=== PATIENT | female | born 1955 | race Caucasian/White ===

== ENCOUNTER 2017-09-27 10:27 | Observation (INO) | payer BC ==
[2017-09-27] VITALS (8 sets, daily range): BP systolic 121–160; BP diastolic 60–81; PULSE 71–85; RESP 16–28; TEMP 97.8–98.9; O2SAT 96–99
[~2017-09-27] VITALS: Ht 157.5 cm; Wt 60.0 kg
[2017-09-27] MEDS ORDERED: ZOCO10TA PO (10:50)
[2017-09-27] MEDS ORDERED: SODIUM CHLOR 0.9% 1000 ML INJ 1,000 ML IV SCH (11:05)
[2017-09-27] MEDS ORDERED: ONDANSETRON HCL 4 MG/2 ML VIAL IVP ONE (11:15)
[2017-09-27] MEDS ORDERED: SODIUM CHLORIDE 0.9% FLUSH 10 ML FLUSH IV FLUSH PRN ×2 (11:15→15:30)
[2017-09-27] MEDS ORDERED: HYDROmorphone HCL PF 1 MG/ML VIAL IVS ONE (11:15)
[2017-09-27] MEDS ORDERED: KETOROLAC TROMETHAMINE 30 MG/ML (IVP) VIAL IVP ONE (11:15)
[2017-09-27 11:37] LABS: AUTOMATED NEUTROPHIL # 4.6 TH/MM3 (1.8-7.7); BASOPHIL % 0.5 % (0.0-2.0); EOSINOPHIL # 0.2 TH/MM3 (0-0.4); EOSINOPHIL % 2.2 % (0.0-4.0); HEMATOCRIT 46.2 % (35.0-46.0); HEMOGLOBIN 15.3 GM/DL (11.6-15.3); LYMPH % 30.1 % (9.0-44.0); LYMPHOCYTE # 2.3 TH/MM3 (1.0-4.8); MEAN CORPUSCULAR HEMOGLOBIN 28.9 PG (27.0-34.0); MEAN CORPUSCULAR HGB CONC 33.2 % (32.0-36.0); MONO % 8.3 % (0.0-8.0); MONOCYTE # 0.6 TH/MM3 (0-0.9); NEUT % 58.9 % (16.0-70.0); PLATELET COUNT 226 TH/MM3 (150-450); RED BLOOD COUNT 5.31 MIL/MM3 (4.00-5.30); RED CELL DISTRIBUTION WIDTH 13.8 % (11.6-17.2); WHITE BLOOD COUNT 7.7 TH/MM3 (4.0-11.0)
[2017-09-27 12:00] LABS: ALKALINE PHOSPHATASE 58 U/L (45-117); TOTAL BILIRUBIN ADULT 0.6 MG/DL (0.2-1.0); TOTAL PROTEIN 7.5 GM/DL (6.4-8.2)
--- NOTE | 2017-09-27 12:00 | RADRPT ---
EXAM DATE/TIME: 09/27/2017 11:41 [place] COMPARISON: No previous studies available for comparison. INDICATIONS : Calculi, Lower abdomen pain and nausea. ORAL CONTRAST: No oral contrast ingested. RADIATION DOSE: 4.20 CTDIvol (mGy) MEDICAL HISTORY : Carcinoma, breast. SURGICAL HISTORY : Cholecystectomy. Hysterectomy. ENCOUNTER: Initial ACUITY: 1 day PAIN SCALE: 2/10 LOCATION: Left lower quadrant TECHNIQUE: Volumetric scanning of the abdomen and pelvis was performed. Using automated exposure control and ad justment of the mA and/or kV according to patient size, radiation dose was kept as low as reasonably achievable to obtain optimal diagnostic quality images. DICOM format image data is available electro nically for review and comparison. FINDINGS: LOWER LUNGS: The visualized lower lungs are clear. LIVER: Homogeneous density without lesion. There is no dilation of the biliary tree. Clips in place prior c holecystectomy. SPLEEN: Normal size without lesion. PANCREAS: Within normal limits. KIDNEYS: Right kidney demonstrates at least 4 punctate calyceal nonobstructing stones 2 in the lower pole one midpole and one towards the upper pole. Left kidney demonstrates a by weight 2 cm cyst anteri or lateral midpole. There is mild hydronephrosis and ureter to the UP junction where there is a 3 mm obstructing stone. Additionally there is a punctate 1-2 mm calculus in the left ureter at the level o f L5.. ADRENAL GLANDS: Within normal limits. VASCULAR: There is no aortic aneurysm. BOWEL/MESENTERY: The stomach, small bowel, and colon demonstrate no acute abnormality. There is no free intraperitone al air or fluid. ABDOMINAL WALL: Within normal limits. Clips in place bilateral inguinal regions as well as throughout the anterior ab dominal wall consistent with remote surgery. RETROPERITONEUM: There is no lymphadenopathy. BLADDER: No wall thickening or mass. REPRODUCTIVE: Within normal limits. Surgical absence of uterus. INGUINAL: There is no lymphadenopathy or hernia. MUSCULOSKELETAL: Within normal limits for patient age. CONCLUSION: Multiple punctate at least 4 right kidney calyceal nonobstructing stones. 5.3 cm left kidney cyst. Left hydronephrosis and ureter to the UV junction wh ere there is a 3 mm obstructing calculus. Additionally appreciated is a punctate calculus in the left ureter one or 2 mm in size and level of L5. Joby Rey MD on September 27, 2017 at 11:48 Board Certified Radiologist. This report was verified electronically.
[2017-09-27 12:10] LABS: ALBUMIN 3.9 GM/DL (3.4-5.0); ALT (GPT) 56 U/L (10-53); AST (GOT) 45 U/L (15-37); BICARBONATE 25.6 MEQ/L (21.0-32.0); BLOOD UREA NITROGEN 17 MG/DL (7-18); CALCIUM 8.9 MG/DL (8.5-10.1); CHLORIDE 105 MEQ/L (98-107); CREATININE 1.03 MG/DL (0.50-1.00); GLOMERULAR FILTRATION RATE 54 ML/MIN (>89); GLUCOSE,RANDOM 131 MG/DL (74-106); LIPASE 245 U/L (73-393); SODIUM (NA) 140 MEQ/L (136-145)
[2017-09-27] MEDS ORDERED: SODIUM CHLOR 0.9% 1000 ML INJ 1,000 ML IV ONE (12:15)
[2017-09-27] MEDS ORDERED: ONDANSETRON HCL 4 MG/2 ML VIAL IV ONE (12:15)
[2017-09-27] MEDS ORDERED: NAPR-855 PO (13:04)
[2017-09-27] MEDS ORDERED: ZOFR4TAB3 SL (13:04)
[2017-09-27] MEDS ORDERED: HYDR-3516 PO (13:04)
--- NOTE | 2017-09-27 13:04 | PD ---
HPI Chief Complaint: Abdominal Pain Time Seen by Provider: 11:05 Travel History International Travel<30 days: No Contact w/Intl Traveler<30days: No Traveled to known affect area: No History of Present Illness HPI This is a 62-year-old female who presents to the emergency department with onset this morning of left sided abdominal pain, sharp and stabbing mostly in the left lower abdomen radiating to the left flank, severe. She also has had some vomiting. She has never had pain like this before. Her father and her son both have had kidney stones. She says she thinks she has diverticulitis. She has had some chills. She does feel some dysuria but denies any hematuria. PFSH Past Medical History Cancer: Yes High Cholesterol: Yes Diminished Hearing: No Medical other: Yes Tetanus Vaccination: < 5 Years Influenza Vaccination: Yes Menopausal: Yes : 1 Para: 1 Past Surgical History Cholecystectomy: Yes Hysterectomy: Yes Other Surgery: Yes (breast ca sx) Social History Alcohol Use: No Tobacco Use: No Substance Use: No Allergies-Medications (Allergen,Severity, Reaction): Coded Allergies: codeine (Verified Adverse Reaction, Unknown, nauseas/ vomiting, 09/27/17) Reported Meds & Prescriptions Reported Meds & Active Scripts Active Naproxen 375 Mg Tab 375 Mg PO BID PRN Zofran Odt (Ondansetron Odt) 4 Mg Tab 4 Mg SL Q6HR PRN Hydrocodone-Acetamin 5-325 mg (Hydrocodone/Acetaminophen) 5 Mg-325 Mg Tablet 1 Tab PO Q6HR PRN Reported Zocor (Simvastatin) 10 Mg Tab 10 Mg PO DAILY Review of Systems Except as stated in HPI: all other systems reviewed are Neg Physical Exam Narrative GENERAL: Uncomfortable appearing SKIN: Focused skin assessment warm and dry. HEAD: Atraumatic. Normocephalic. EYES: Pupils equal and round. No injection or drainage. ENT: Moist mucous membranes NECK: Trachea midline. CARDIOVASCULAR: Regular rate and rhythm. No murmur appreciated. RESPIRATORY: Clear to auscultation. Breath sounds equal bilaterally. GASTROINTESTINAL: Abdomen soft, tender to palpation in the left lower quadrant with some guarding. : Left CVA tenderness. MUSCULOSKELETAL: No obvious deformities. NEUROLOGICAL: Awake and alert. No obvious cranial nerve deficits. Moving all extremities. PSYCHIATRIC: Appropriate mood and affect; insight and judgment normal. Data Data Last Documented VS Vital Signs Date Time Temp Pulse Resp B/P (MAP) Pulse Ox O2 Delivery O2 Flow Rate FiO2 09/27/17 14:38 97.9 74 16 121/64 (83) 98 Room Air Orders Orders Complete Blood Count With Diff (09/27/17 11:05) Comprehensive Metabolic Panel (09/27/17 11:05) Lipase (09/27/17 11:05) Lactic Acid (09/27/17 11:05) Urinalysis - C+S If Indicated (09/27/17 11:05) Ct Abd/Pel W/O Iv Contrast (09/27/17 11:05) Iv Access Insert/Monitor (09/27/17 11:05) Ecg Monitoring (09/27/17 11:05) Oximetry (09/27/17 11:05) Ondansetron Inj (Zofran Inj) (09/27/17 11:15) Sodium Chlor 0.9% 1000 Ml Inj (Ns 1000 M (09/27/17 11:05) Sodium Chloride 0.9% Flush (Ns Flush) (09/27/17 11:15) Ketorolac Inj (Toradol Inj) (09/27/17 11:15) Hydromorphone Pf Inj (Dilaudid Pf Inj) (09/27/17 11:15) Sodium Chlor 0.9% 1000 Ml Inj (Ns 1000 M (09/27/17 12:15) Ondansetron Inj (Zofran Inj) (09/27/17 12:15) Promethazine Inj (Phenergan Inj) (09/27/17 13:15) Lactic Acid (09/27/17 14:29) Admit Order (Ed Use Only) (09/27/17 14:45) Labs Laboratory Tests Test 09/27/17 11:10 09/27/17 13:00 09/27/17 14:30 White Blood Count 7.7 TH/MM3 Red Blood Count 5.31 MIL/MM3 Hemoglobin 15.3 GM/DL Hematocrit 46.2 % Mean Corpuscular Volume 87.0 FL Mean Corpuscular Hemoglobin 28.9 PG Mean Corpuscular Hemoglobin Concent 33.2 % Red Cell Distribution Width 13.8 % Platelet Count 226 TH/MM3 Mean Platelet Volume 9.0 FL Neutrophils (%) (Auto) 58.9 % Lymphocytes (%) (Auto) 30.1 % Monocytes (%) (Auto) 8.3 % Eosinophils (%) (Auto) 2.2 % Basophils (%) (Auto) 0.5 % Neutrophils # (Auto) 4.6 TH/MM3 Lymphocytes # (Auto) 2.3 TH/MM3 Monocytes # (Auto) 0.6 TH/MM3 Eosinophils # (Auto) 0.2 TH/MM3 Basophils # (Auto) 0.0 TH/MM3 CBC Comment DIFF FINAL Differential Comment Blood Urea Nitrogen 17 MG/DL Creatinine 1.03 MG/DL Random Glucose 131 MG/DL Total Protein 7.5 GM/DL Albumin 3.9 GM/DL Calcium Level 8.9 MG/DL Alkaline Phosphatase 58 U/L Aspartate Amino Transf (AST/SGOT) 45 U/L Alanine Aminotransferase (ALT/SGPT) 56 U/L Total Bilirubin 0.6 MG/DL Sodium Level 140 MEQ/L Potassium Level 3.8 MEQ/L Chloride Level 105 MEQ/L Carbon Dioxide Level 25.6 MEQ/L Anion Gap 9 MEQ/L Estimat Glomerular Filtration Rate 54 ML/MIN Lactic Acid Level 4.7 mmol/L 2.5 mmol/L Lipase 245 U/L Urine Color LIGHT-YELLOW Urine Turbidity CLEAR Urine pH 7.5 Urine Specific [place] 1.006 Urine Protein NEG mg/dL Urine Glucose (UA) NEG mg/dL Urine Ketones NEG mg/dL Urine Occult Blood NEG Urine Nitrite NEG Urine Bilirubin NEG Urine Urobilinogen LESS THAN 2.0 MG/DL Urine Leukocyte Esterase NEG Urine RBC 1 /hpf Urine WBC 1 /hpf Urine Squamous Epithelial Cells <1 /hpf Microscopic Urinalysis Comment CULT NOT INDICATED MDM Medical Decision Making Medical Screen Exam Complete: Yes Emergency Medical Condition: Yes Interpretation(s) Afebrile, no tachycardia, tachypnea secondary to pain, hypertension also likely secondary to pain No leukocytosis Electrolytes are reassuring Lactic acid is 4.7 likely in the setting of dehydration as the patient has no other evidence of infection. Differential Diagnosis Nephrolithiasis, pyelonephritis, obstructive uropathy, pancreatitis, diverticulitis Narrative Course This is a 62-year-old female who presents to the emergency department with left- sided abdominal pain. Her symptoms are classic for kidney stone. She was placed on a monitor and an IV was established. She was given pain control and antiemetics as well as IV fluids. Labs are reassuring with no leukocytosis. CT demonstrates 2 stones on the left side one of which is 3 mm and at the UVJ and one which is higher which is 1-2 mm. I was going to discharge the patient but she continues to feel very nauseous. She required 8 mg of IV Zofran and Phenergan and she still deals on well and her pain is recurring. I think patient requires observation for symptomatic control. Lactic acid is 4.7. I think this is related to dehydration as the patient has no other signs of sepsis and has no source of infection. Diagnosis Primary Impression: Nephrolithiasis Patient Instructions: General Instructions Additional Instructions: If you develop severe pain, inability to eat or drink, or fever return to the emergency department. Use a strainer to try to catch your stone. Take Lortab as needed for pain, and continue taking zofran as needed for nausea. Follow up with urology as soon as possible. Med/Other Pt SpecificInfo: Prescription(s) given Scripts Naproxen (Naproxen) 375 Mg Tab 375 MG PO BID Y for PAIN SCALE 4 TO 10, #20 TAB 0 Refills Prov: Cydney Hernandez MD 09/27/17 Ondansetron Odt (Zofran Odt) 4 Mg Tab 4 MG SL Q6HR Y for Nausea/Vomiting, #15 TAB 0 Refills Prov: Cydney Hernandez MD 09/27/17 Hydrocodone/Acetaminophen (Hydrocodone-Acetamin 5-325 mg) 5 Mg-325 Mg Tablet 1 TAB PO Q6HR Y for PAIN SCALE 4 TO 10, #12 Prov: Cydney Hernandez MD 09/27/17 Disposition: 01 DISCHARGE HOME Condition: Stable Cydney Hernandez MD Sep 27, 2017 13:04
[2017-09-27] MEDS ORDERED: PROMETHAZINE INJ 25 MG/ML VIAL IM ONE (13:15)
[2017-09-27 14:02] LABS: BILIRUBIN, URINE NEG (NEG); BLOOD, URINE NEG (NEG); GLUCOSE,URINE NEG (NEG); KETONE, URINE NEG (NEG); NITRITE,URINE NEG (NEG); PH, URINE 7.5 (5.0-8.5); SQUAMOUS EPITHELIAL CELL URINE <1 /hpf (0-5); URINE COLOR LIGHT-YELLOW (YELLW/STRAW); URINE LEUKOCYTE ESTERASE NEG (NEG)
--- NOTE | 2017-09-27 14:58 | HHI.HP ---
HPI Service Family Medicine Primary Care Physician Unknown Admission Diagnosis kidney stone, hydronephrosis Diagnoses: International Travel<30 Days: No Contact w/Intl Traveler<30days: No Known Affected Area: No History of Present Illness Patient is a 62-year-old Female with PMHx of breast cancer s/p total BL mastectomy that presents to the ED with complaints of Left lower abdominal pain that started this morning. Pt states pain came on abruptly and rates it as 10/ 10 with associated sxs of diaphoresis, vomiting x3, nausea, and midsternal nonradiating CP. She states currently the pain is minimal since receiving pain medication in the ED. However, she still complains of nausea, chills and dizziness/lightheadedness. CP has resolved. Pt denies prior hx of kidney stones , dysuria, hematuria, increased frequency or fever. Review of Systems Constitutional: COMPLAINS OF: Fatigue, Chills, Dizziness, DENIES: Fever Eyes: DENIES: Blurred vision, Eye pain, Vision loss Ears, nose, mouth, throat: DENIES: Throat pain, Sinus Pain Respiratory: DENIES: Cough, Shortness of breath Cardiovascular: COMPLAINS OF: Chest pain (tightness this about 5mins, mid chest resolved, ), DENIES: Palpitations Gastrointestinal: COMPLAINS OF: Abdominal pain, Diarrhea, Nausea, Vomiting Genitourinary: DENIES: Urinary frequency, Hematuria, Dysuria Neurologic: DENIES: Headache Psychiatric: COMPLAINS OF: Confusion Past Family Social History Past Medical History tendinitis on right forearm, surgery done on Saturday (09/23/16) Breast CA x2, in remission , 2 lumpectomy on Left breast and total mastectomy in 2014--Dr. Altamirano Past Surgical History cholecystectomy, 2005 hystorectomy, 2008, uterine tumor Allergies: Coded Allergies: codeine (Verified Adverse Reaction, Unknown, nauseas/ vomiting, 09/27/17) Family History Mother- HTN, breast CA Social History Patient is on vacation [place], [place] - Currently staying with brother who lives in [place] - Works as a living advisor -Denies smoking, alcohol or illicit drug use Physical Exam Vital Signs Vital Signs Date Time Temp Pulse Resp B/P (MAP) Pulse Ox O2 Delivery O2 Flow Rate FiO2 09/27/17 14:38 97.9 74 16 121/64 (83) 98 Room Air 09/27/17 13:40 97.9 83 16 125/81 (96) 99 Room Air 09/27/17 12:25 72 16 130/60 (83) 98 Room Air 09/27/17 12:18 16 09/27/17 11:48 16 09/27/17 11:06 16 98 Room Air 09/27/17 10:45 16 09/27/17 10:31 97.9 71 28 160/73 (102) 97 Physical Exam GENERAL: This is a well-nourished, well-developed patient, in no apparent distress. SKIN: No rashes, ecchymoses or lesions. Cool and dry. HEAD: Atraumatic. Normocephalic. No temporal or scalp tenderness. EYES: Pupils equal round and reactive. Extraocular motions intact. No scleral icterus. No injection or drainage. ENT: Nose without bleeding, purulent drainage or septal hematoma. Throat without erythema, tonsillar hypertrophy or exudate. Uvula midline. Airway patent. NECK: Trachea midline. No JVD or lymphadenopathy. Supple, nontender, no meningeal signs. CARDIOVASCULAR: Regular rate and rhythm without murmurs, gallops, or rubs. RESPIRATORY: Clear to auscultation. Breath sounds equal bilaterally. No wheezes , rales, or rhonchi. GASTROINTESTINAL: Abdomen soft, tender to palpation on left lower abdomen, nondistended. No hepato-splenomegaly, or palpable masses. No guarding. mild tenderness to palpation on Left flank. MUSCULOSKELETAL: Extremities without clubbing, cyanosis, or edema. No joint tenderness, effusion, or edema noted. No calf tenderness. Negative Homans sign bilaterally. NEUROLOGICAL: Awake and alert. Cranial nerves II through XII intact. Motor and sensory grossly within normal limits. Five out of 5 muscle strength in all muscle groups. Normal speech. Laboratory Laboratory Tests Test 09/27/17 11:10 09/27/17 13:00 09/27/17 14:30 White Blood Count 7.7 Red Blood Count 5.31 Hemoglobin 15.3 Hematocrit 46.2 Mean Corpuscular Volume 87.0 Mean Corpuscular Hemoglobin 28.9 Mean Corpuscular Hemoglobin Concent 33.2 Red Cell Distribution Width 13.8 Platelet Count 226 Mean Platelet Volume 9.0 Neutrophils (%) (Auto) 58.9 Lymphocytes (%) (Auto) 30.1 Monocytes (%) (Auto) 8.3 Eosinophils (%) (Auto) 2.2 Basophils (%) (Auto) 0.5 Neutrophils # (Auto) 4.6 Lymphocytes # (Auto) 2.3 Monocytes # (Auto) 0.6 Eosinophils # (Auto) 0.2 Basophils # (Auto) 0.0 CBC Comment DIFF FINAL Differential Comment Blood Urea Nitrogen 17 Creatinine 1.03 Random Glucose 131 Total Protein 7.5 Albumin 3.9 Calcium Level 8.9 Alkaline Phosphatase 58 Aspartate Amino Transf (AST/SGOT) 45 Alanine Aminotransferase (ALT/SGPT) 56 Total Bilirubin 0.6 Sodium Level 140 Potassium Level 3.8 Chloride Level 105 Carbon Dioxide Level 25.6 Anion Gap 9 Estimat Glomerular Filtration Rate 54 Lactic Acid Level 4.7 Lipase 245 Urine Color LIGHT-YELLOW Urine Turbidity CLEAR Urine pH 7.5 Urine Specific [place] 1.006 Urine Protein NEG Urine Glucose (UA) NEG Urine Ketones NEG Urine Occult Blood NEG Urine Nitrite NEG Urine Bilirubin NEG Urine Urobilinogen LESS THAN 2.0 Urine Leukocyte Esterase NEG Urine RBC 1 Urine WBC 1 Urine Squamous Epithelial Cells <1 Microscopic Urinalysis Comment CULT NOT INDICATED Result Diagram: 09/27/17 1110 09/27/17 1110 Imaging Last Impressions Abdomen/Pelvis CT 09/27/17 1105 Signed Impressions: Service Date/Time: Wednesday, September 27, 2017 11:41 - CONCLUSION: Multiple punctate at least 4 right kidney calyceal nonobstructing stones. 5.3 cm left kidney cyst. Left hydronephrosis and ureter to the UV junction where there is a 3 mm obstructing calculus. Additionally appreciated is a punctate calculus in the left ureter one or 2 mm in size and level of L5. Joby Rey MD Caprini VTE Risk Assessment Caprini VTE Risk Assessment: Mod/High Risk (score >= 2) Caprini Risk Assessment Model Point Value = 1 Point Value = 2 Point Value = 3 Point Value = 5 Age 41-60 Minor surgery BMI > 25 kg/m2 Swollen legs Varicose veins or History of unexplained or recurrent spontaneous Oral contraceptives or hormone replacement Sepsis (< 1 month) Serious lung disease, including pneumonia (< 1 month) Abnormal pulmonary function Acute myocardial infarction Congestive heart failure (< 1 month) History of inflammatory bowel disease Medical patient at bed rest Age 61-74 Arthroscopic surgery Major open surgery (> 45 min) Laparoscopic surgery (> 45 min) Malignancy Confined to bed (> 72 hours) Immobilizing plaster cast Central venous access Age >= 75 History of VTE Family history of VTE Factor V Leiden Prothrombin [id number] Lupus anticoagulant Anticardiolipin antibodies Elevated serum homocysteine Heparin-induced thrombocytopenia Other congenital or acquired thrombophilia Stroke (< 1 month) Elective arthroplasty Hip, pelvis, or leg fracture Acute spinal cord injury (< 1 month) Prophylaxis Regimen Total Risk Factor Score Risk Level Prophylaxis Regimen 0-1 Low Early ambulation 2 Moderate Order ONE of the following: *Sequential Compression Device (SCD) *Heparin 5000 units SQ BID 3-4 Higher Order ONE of the following medications: *Heparin 5000 units SQ TID *Enoxaparin/Lovenox 40 mg SQ daily (WT < 150 kg, CrCl > 30 mL/min) *Enoxaparin/Lovenox 30 mg SQ daily (WT < 150 kg, CrCl > 10-29 mL/min) *Enoxaparin/Lovenox 30 mg SQ BID (WT < 150 kg, CrCl > 30 mL/min) AND/OR *Sequential Compression Device (SCD) 5 or more Highest Order ONE of the following medications: *Heparin 5000 units SQ TID (Preferred with Epidurals) *Enoxaparin/Lovenox 40 mg SQ daily (WT < 150 kg, CrCl > 30 mL/min) *Enoxaparin/Lovenox 30 mg SQ daily (WT < 150 kg, CrCl > 10-29 mL/min) *Enoxaparin/Lovenox 30 mg SQ BID (WT < 150 kg, CrCl > 30 mL/min) AND *Sequential Compression Device (SCD) Assessment and Plan Assessment and Plan Patient is a 62-year-old Female with PMHx of breast cancer s/p total BL mastectomy that presents to the ED with complaints of severe Left lower abdominal pain that started this morning. Code Status Full code Discussed Condition With DW Dr. Beckman Problem List: (1) Nephrolithiasis ICD Codes: N20.0 - Calculus of kidney Status: Acute Plan: Pt with acute onset of 10/10 Left lower abdominal pain -CT abd/pelvis showed: multiple calculi in Right kidney, Left renal cyst and 3mm obstructing stone on UV junction and 2 mm stone on Left ureter - UA negative -No leukocytosis - afebrile -f/u am labs -Ketoralac for pain control -c/w with IVF hydration -consider urology consult is pt becomes septic or pain is intractable -elevated lactic acid, continue to monitor (2) Nutrition, metabolism, and development symptoms ICD Codes: R63.8 - Other symptoms and signs concerning food and fluid intake Plan: Fluids: IVF Electrolytes: WNL, replete as needed Diet: regular diet Erika Prasad MD, R1 Sep 27, 2017 14:58
[2017-09-27] MEDS ORDERED: ZOLPIDEM TARTRATE 5 MG TAB PO PRN (15:30)
[2017-09-27] MEDS ORDERED: NALOXONE HCL 0.4 MG/ML AMP IV PUSH PRN ×2 (15:30→15:45)
[2017-09-27] MEDS ORDERED: SENNOSIDES 8.6 MG TAB PO PRN (15:30)
[2017-09-27] MEDS ORDERED: MAGNESIUM HYDROXIDE SUSP 30 ML CUP PO PRN (15:30)
[2017-09-27] MEDS ORDERED: LACTULOSE SYRUP 20 GM/30 ML CUP PO PRN (15:30)
[2017-09-27] MEDS ORDERED: BISACODYL 10 MG SUPP RECTAL PRN (15:30)
[2017-09-27] MEDS ORDERED: MORPHINE SULFATE 2 MG/ML INJ IV PUSH PRN (15:45)
[2017-09-27] MEDS ORDERED: IBUPROFEN 400 MG TAB PO PRN (15:45)
[2017-09-27] MEDS: SODIUM CHLOR 0.9% 1000 ML INJ 1,000 ML IV SCH (15:58)
[2017-09-27] MEDS ORDERED: KETOROLAC TROMETHAMINE 30 MG/ML (IVP) VIAL IV PUSH PRN (17:18)
[2017-09-27] MEDS: ONDANSETRON HCL 4 MG/2 ML VIAL IVP PRN (17:48)
[2017-09-27] MEDS: SODIUM CHLORIDE 0.9% FLUSH 10 ML FLUSH IV FLUSH SCH (21:13)
[2017-09-27] MEDS: DOCUSATE SODIUM 50 MG/SENNA 8.6 MG TAB PO SCH (21:13)
[2017-09-27] MEDS: KETOROLAC TROMETHAMINE 30 MG/ML (IVP) VIAL IV PUSH PRN (23:26)
[2017-09-28] MEDS: SODIUM CHLOR 0.9% 1000 ML INJ 1,000 ML IV SCH (01:27)
[2017-09-28 04:30] VITALS: BP 128/60; PULSE 77; RESP 17; TEMP 98; O2SAT 95
[2017-09-28] MEDS: SODIUM CHLORIDE 0.9% FLUSH 10 ML FLUSH IV FLUSH SCH (09:00)
[2017-09-28 09:04] LABS: BICARBONATE 21.4 MEQ/L (21.0-32.0); CALCIUM 8.3 MG/DL (8.5-10.1); CREATININE 0.96 MG/DL (0.50-1.00)
[2017-09-28] MEDS: DOCUSATE SODIUM 50 MG/SENNA 8.6 MG TAB PO SCH (09:32)
[2017-09-28] MEDS: KETOROLAC TROMETHAMINE 30 MG/ML (IVP) VIAL IV PUSH PRN (09:32)
[2017-09-28] MEDS ORDERED: oxyCODONE/ACETAMINOPHEN 10 MG/325 MG TAB PO PRN (11:00)
[2017-09-28 11:38] VITALS: BP 158/97; PULSE 66; RESP 18; TEMP 98.3; O2SAT 97
[2017-09-28] MEDS: ONDANSETRON HCL 4 MG/2 ML VIAL IVP PRN (11:47)
--- NOTE | 2017-09-28 12:35 | HHI.FPPN ---
Subjective Remarks Attending admission note: Patient seen and examined with the resident team. Delightful 62-year-old woman visiting from [facility] who presented to the emergency room with acute onset of left flank, left abdomen into the left groin pain. Strong family history of kidney stones, patient herself has never had symptomatic renal lithiasis. Has a history of breast cancer and hyperlipidemia. Is only visiting the [facility] for several days. Please refer to the resident history and physical for complete discussion of past medical history, social history, family history and review of systems. Objective Vitals Vital Signs Date Time Temp Pulse Resp B/P (MAP) Pulse Ox O2 Delivery O2 Flow Rate FiO2 09/28/17 11:38 98.3 66 18 158/97 (117) 97 09/28/17 04:30 98.0 77 17 128/60 (82) 95 09/28/17 00:26 16 09/27/17 23:30 98.9 84 16 138/67 (90) 96 09/27/17 21:18 18 09/27/17 20:02 98.1 85 17 131/62 (85) 96 09/27/17 18:51 18 09/27/17 17:27 97.8 74 16 150/76 (100) 99 09/27/17 14:38 97.9 74 16 121/64 (83) 98 Room Air 09/27/17 13:40 97.9 83 16 125/81 (96) 99 Room Air I/O 09/27/17 09/27/17 09/27/17 09/28/17 09/28/17 09/28/17 07:00 15:00 23:00 07:00 15:00 23:00 Intake Total 2000 ml Balance 2000 ml Intake IV Total 2000 ml Result Diagram: 09/27/17 1110 09/28/17 0757 Objective Remarks Vital signs noted. Afebrile. Gen.: Middle-aged woman who is delightful in conversation, guarding her left abdomen on palpation HEENT: Grossly nonlocalizing. Lungs: Clear to auscultation. Cardiac: S1-S2, no S3 or murmurs. Abdomen: Active bowel sounds, there is tenderness reported on palpation of the left mid and left lower quadrant,distinct masses, possibly some slight distention, no organomegaly. Extremities: No edema, feet are warm and dry. A/P Assessment and Plan Attending clinical assessment: #1 very symptomatic left renal lithiasis with additional stones in the right kidney #2 history of breast cancer #3 history of hyperlipidemia. Because of the position of the statins, do recommend urology consultation to arrange for outpatient follow-up. Patient may need to stay in the area until acute issues are resolved and she is very reluctant to fly commercially. Case reviewed and discussed with the resident team. Agree with plan of care is discussed with me and documented in the resident note. Problem List: (1) Nephrolithiasis ICD Codes: N20.0 - Calculus of kidney Status: Acute Plan: Pt with acute onset of 10/10 Left lower abdominal pain -CT abd/pelvis showed: multiple calculi in Right kidney, Left renal cyst and 3mm obstructing stone on UV junction and 2 mm stone on Left ureter - UA negative -No leukocytosis - afebrile -f/u am labs -Ketoralac for pain control -c/w with IVF hydration -consider urology consult is pt becomes septic or pain is intractable -elevated lactic acid, continue to monitor (2) Nutrition, metabolism, and development symptoms ICD Codes: R63.8 - Other symptoms and signs concerning food and fluid intake Plan: Fluids: IVF Electrolytes: WNL, replete as needed Diet: regular diet Artis St MD Sep 28, 2017 12:35
--- NOTE | 2017-09-28 12:39 | EKG ---
Date Performed: 09/27/2017 Time Performed: 16:20:34 PTAGE: 62 years EKG: Sinus rhythm POOR R-WAVE PROGRESSION NONSPECIFIC ST CHANGES BORDERLINE ECG NO PREVIOUS TRACING DOCTOR: Jaycob Purcell Interpretating Date/Time 09/28/2017 12:37:58
[2017-09-28 14:29] VITALS: BP 137/73; PULSE 85; RESP 18; TEMP 98.7; O2SAT 94
--- NOTE | 2017-09-28 16:27 | PD.CONS ---
HPI Service Urology Consult Requested By Reason for Consult Nephrolithiasis Primary Care Physician Unknown Diagnosis: History of Present Illness 62yo female from [place] admitted for left flank pain seen in consultation for left nephrolithiasis. Patient reports she began to develop severe left flank pain yesterday that was sharp and stabbing to the left flank, 10/10 radiating to the left groin. She has a strong family history of kidney stones. There was associated nausea, no vomiting. no fevers. Currently her pain is well controlled and comfortable. CT scan identified left distal 3mm ureteral stone, mild hydro. Few small stones in the kidney as well. She is returning to [place] in a few days. Review of Systems ROS Limitations: Clinical Condition Constitutional: DENIES: Fever Endocrine: DENIES: Polyuria Eyes: DENIES: Blurred vision Ears, nose, mouth, throat: DENIES: Hearing loss Respiratory: DENIES: Cough Cardiovascular: DENIES: Chest pain Gastrointestinal: COMPLAINS OF: Abdominal pain, Nausea, DENIES: Vomiting Genitourinary: DENIES: Hematuria, Dysuria Musculoskeletal: COMPLAINS OF: Back pain Integumentary: DENIES: Rash Neurologic: DENIES: Headache Psychiatric: DENIES: Anxiety Except as stated in HPI: all other systems reviewed are Neg Past Family Social History Past Medical History tendinitis on right forearm, surgery done on Saturday (09/23/16) Breast CA x2, in remission , 2 lumpectomy on Left breast and total mastectomy in 2014--Dr. Altamirano Past Surgical History cholecystectomy, 2005 hystorectomy, 2008, uterine tumor Reported Medications Reported Meds & Active Scripts Active Naproxen 375 Mg Tab 375 Mg PO BID PRN Zofran Odt (Ondansetron Odt) 4 Mg Tab 4 Mg SL Q6HR PRN Hydrocodone-Acetamin 5-325 mg (Hydrocodone/Acetaminophen) 5 Mg-325 Mg Tablet 1 Tab PO Q6HR PRN Reported Zocor (Simvastatin) 10 Mg Tab 10 Mg PO DAILY Allergies: Coded Allergies: codeine (Verified Adverse Reaction, Unknown, nauseas/ vomiting, 09/27/17) Active Ordered Medications Current Medications Medications (Trade) Dose Ordered Sig/Fabian Route Start Time Stop Time Status Last Admin Sodium Chloride 1,000 ml @ 100 mls/hr Q10H IV 09/27/17 15:27 09/28/17 01:27 (NS Flush) 2 ml UNSCH PRN IV FLUSH 09/27/17 15:30 (NS Flush) 2 ml BID IV FLUSH 09/27/17 21:00 09/27/17 21:13 (Zofran Inj) 4 mg Q6H PRN IVP 09/27/17 15:30 09/28/17 11:47 (Ambien) 5 mg HS PRN PO 09/27/17 15:30 (Narcan Inj) 0.4 mg UNSCH PRN IV PUSH 09/27/17 15:30 (Tammy-Colace) 1 tab BID PO 09/27/17 21:00 09/28/17 09:32 (Milk Of Magnesia Liq) 30 ml Q12H PRN PO 09/27/17 15:30 (Senokot) 17.2 mg Q12H PRN PO 09/27/17 15:30 (Dulcolax Supp) 10 mg DAILY PRN RECTAL 09/27/17 15:30 (Lactulose Liq) 30 ml DAILY PRN PO 09/27/17 15:30 (Motrin) 400 mg Q6H PRN PO 09/27/17 15:45 (Toradol Inj) 15 mg Q6H PRN IV PUSH 09/27/17 17:18 10/02/17 11:17 09/27/17 17:51 (Morphine Inj) 2 mg Q3H PRN IV PUSH 09/27/17 15:45 09/27/17 21:13 (Percocet 10-325 Mg) 1 tab Q4H PRN PO 09/28/17 11:00 09/28/17 11:48 Family History Mother- HTN, breast CA Social History Patient is on vacation [place], [place] - Currently staying with brother who lives in [place] - Works as a medical secretary receptionist -Denies smoking, alcohol or illicit drug use Physical Exam Vital Signs Date Time Temp Pulse Resp B/P (MAP) Pulse Ox O2 Delivery O2 Flow Rate FiO2 09/28/17 14:29 98.7 85 18 137/73 (94) 94 09/28/17 11:38 98.3 66 18 158/97 (117) 97 09/28/17 04:30 98.0 77 17 128/60 (82) 95 1/20/18 00:26 16 09/27/17 23:30 98.9 84 16 138/67 (90) 96 09/27/17 21:18 18 09/27/17 20:02 98.1 85 17 131/62 (85) 96 09/27/17 18:51 18 09/27/17 17:27 97.8 74 16 150/76 (100) 99 Physical Exam GENERAL: This is a well-nourished, well-developed patient, in no apparent distress. SKIN: No rashes, ecchymoses or lesions. Cool and dry. HEAD: Atraumatic. Normocephalic. EYES: Extraocular motions intact. No scleral icterus. No injection or drainage. ENT: Nose without bleeding, purulent drainage. Airway patent. NECK: Trachea midline. No JVD or lymphadenopathy. CARDIOVASCULAR: Normal pulse RESPIRATORY: Nonlabored GASTROINTESTINAL: Abdomen soft, non-tender, nondistended. MUSCULOSKELETAL: Extremities without clubbing, cyanosis, or edema. NEUROLOGICAL: Awake and alert. Motor and sensory grossly within normal limits. Normal speech. Lab results reviewed: Yes Laboratory Tests Test 09/28/17 07:57 09/28/17 09:00 Blood Urea Nitrogen 14 Creatinine 0.96 Random Glucose 88 Calcium Level 8.3 Sodium Level 142 Potassium Level 3.8 Chloride Level 111 Carbon Dioxide Level 21.4 Anion Gap 10 Estimat Glomerular Filtration Rate 59 Lactic Acid Level 1.2 Result Diagram: 09/27/17 1110 09/28/17 0757 Personally reviewed images: Yes Imaging Last Impressions Abdomen/Pelvis CT 09/27/17 1105 Signed Impressions: Service Date/Time: Wednesday, September 27, 2017 11:41 - CONCLUSION: Multiple punctate at least 4 right kidney calyceal nonobstructing stones. 5.3 cm left kidney cyst. Left hydronephrosis and ureter to the UV junction where there is a 3 mm obstructing calculus. Additionally appreciated is a punctate calculus in the left ureter one or 2 mm in size and level of L5. Joby eRy MD Assessment and Plan Problem List: (1) Nephrolithiasis ICD Code: N20.0 - Calculus of kidney Status: Acute Code Status -CT images reviewed. Based on size and location of stone, patient has a good chance of passing the stone without intervention -Patient is currently comfortable, little to no pain -Recommend conservative therapy at this time with Flomax and Toradol. -Patient is clear for discharge from Urology standpoint -Discussed with patient that if her pain returns or worsens, to report back to the ED or come to Urology clinic immediately -Patient understands to follow-up with Urology after discharge, either here in [facility] or back home in [place]. Patient may fly back home if she is without pain and doing well -Please call with questions Adolfo Gama MD Sep 28, 2017 16:27
[2017-09-28] MEDS ORDERED: KETO10 PO (16:55)
[2017-09-28] MEDS ORDERED: PERC10TA27 PO (16:55)
--- NOTE | 2017-09-28 16:56 | HHI.DCPOC ---
Discharge Care Plan Diagnosis: (1) Nephrolithiasis Goals to Promote Your Health * To prevent worsening of your condition and complications * To maintain your health at the optimal level Directions to Meet Your Goals Take your medications as prescribed Follow your dietary instruction Follow activity as directed Keep your appointments as scheduled Take your immunizations and boosters as scheduled If your symptoms worsen call your PCP, if no PCP go to Urgent Care Center or Emergency Room Smoking is Dangerous to Your Health. Avoid second hand smoke Call the 24-hour hour crisis hotline for domestic abuse at Mary Melendez MD R3 Sep 28, 2017 16:56
== END 2017-09-28 17:41 | disposition home or self-care (01) ==
LOC: NEPC 10:27 → NEDA 14:46 → NEPFCDU 17:29
PROVIDERS: ADMIT Family Medicine; ATTEND Family Medicine
DX: N13.2 Hydronephrosis with renal and ureteral calculous obstruction (principal); E78.5 Hyperlipidemia, unspecified; E86.0 Dehydration; N28.1 Cyst of kidney, acquired; Z85.3 Personal history of malignant neoplasm of breast; Z90.10 Acquired absence of unspecified breast and nipple; Z90.710 Acquired absence of both cervix and uterus
CPT/HCPCS: 74176; 80048; 80053; 81001; 83605; 83690; 85025; 93005; 96361; 96374; 96375; 96376; 99285; G0378; J1170; J1885; J2270; J2405; J2550; J7030